=== PATIENT | male | born 1995 | race Caucasian/White ===

== ENCOUNTER 2023-08-09 13:13 | Emergency (ER) | payer SELFPAY ==
[2023-08-09] MEDS ORDERED: KETOROLAC 30 MG/ML INJ ONE (13:48)
[2023-08-09] MEDS ORDERED: CYCLOBENZAPRINE 10 MG TAB ONE (13:48)
[2023-08-09 13:50] LABS: Specific Gravity 1.019 (1.005-1.030); Urine Bilirubin NEGATIVE (Negative); Urine Blood Negative (Negative); Urine Clarity Clear (Clear); Urine Color Light-Yellow (Yellow); Urine Glucose NEGATIVE (Negative); Urine Protein NEGATIVE (Negative); Urine Urobilinogen Normal (Normal); Urine pH 5.5 (5.0-7.0)
--- NOTE | 2023-08-09 13:56 | ER ---
Nurse's Notes [facility] Name: Pacheco Macias Age: 27 yrs Sex: Male : 1995 Arrival Date: 08/09/2023 Time: 13:13 Bed 14 Private MD: Diagnosis: Low back pain Presentation: 08/09 13:18 Chief complaint: Patient states: Right low back pain that radiates to buttock and leg, nj1 onset 2 weeks ago, getting worse. 13:18 Coronavirus screen: Vaccine status: Patient reports being unvaccinated. Ebola Screen: nj1 Patient denies travel to an Ebola-affected area in the 21 days before illness onset. Initial Sepsis Screen: Does the patient meet any 2 criteria? No. Patient's initial sepsis screen is negative. Does the patient have a suspected source of infection? No. Patient's initial sepsis screen is negative. Risk Assessment: Do you want to hurt yourself or someone else? Patient reports no desire to harm self or others. Onset of symptoms was July 2023. 13:18 Method Of Arrival: Ambulatory [facility] 13:18 Acuity: LAURYN 3 nj1 Historical: - Allergies: 13:29 No Known Allergies; nj1 - PMHx: 13:29 None; nj1 - PSHx: 13:29 Appendectomy; Cholecystectomy; Exploratory laparotomy; nj1 - Immunization history:: Client reports having NOT received the Covid vaccine. - Social history:: Smoking status: Patient reports the use of cigarette tobacco products, smokes two packs cigarettes per day. Screenin:49 [facility] ED Fall Risk Assessment (Adult) Score/Fall Risk Level 0 - 2 = Low Risk nj Oriented to surroundings, Maintained a safe environment, Hourly rounding (assess needs \T\ fall precautionary measures) done. Abuse screen: Denies threats or abuse. Denies injuries from another. Nutritional screening: No deficits noted. Tuberculosis screening: No symptoms or risk factors identified. Assessment: 13:30 General: Appears in no apparent distress. uncomfortable, Behavior is calm, cooperative, nj1 appropriate for age. Pain: Complains of pain in right low back Pain radiates to right gluteus eleonora and right leg Pain currently is 7 out of 10 on a pain scale. Aggravated by increased activity, Sitting. Neuro: Level of Consciousness is awake, alert, obeys commands, Oriented to person, place, time, situation. Cardiovascular: Patient's skin is warm and dry. Respiratory: Airway is patent Respiratory effort is even, unlabored. 14:48 Reassessment: Patient appears in no apparent distress at this time. Patient and/or nj1 family updated on plan of care and expected duration. Pain level reassessed. Patient is alert, oriented x 3, equal unlabored respirations, skin warm/dry/pink. Patient states feeling better. Patient states symptoms have improved. Vital Signs: 13:18 BP 102 / 60; Pulse 84; Resp 16; Temp 98.3(O); Pulse Ox 96% on R/A; Weight 81.65 kg; nj1 Height 6 ft. 2 in. ; Pain 7/10; 14:48 BP 115 / 58; Pulse 72; Resp 16; Pulse Ox 97% ; Pain 5/10; nj1 13:18 Body Mass Index 23.11 (81.65 kg, 187.96 cm) nj1 13:18 Pain Scale: Adult nj1 14:48 Pain Scale: Adult wa1 ED Course: 13:14 Patient arrived in ED. rg4 13:14 Mikayla Elizalde FNP is [facility] 13:14 Guy Chavarria MD is Attending Physician. [facility] 13:26 Charissa Richardson, RN is Primary Nurse. nj1 13:29 Triage completed. nj1 13:30 Arm band placed on. nj1 13:30 Patient has correct armband on for positive identification. Bed in low position. Call nj1 light in reach. Adult w/ patient. Provided Education on: call light, fall precautions. 14:50 No provider procedures requiring assistance completed. Patient did not have IV access nj1 during this emergency room visit. Administered Medications: 13:40 Drug: Ketorolac IM 60 mg IM once Route: IM; Site: right ventrogluteal; nj1 14:48 Follow up: Response: No adverse reaction; Pain is decreased nj 13:40 Drug: Cyclobenzaprine PO 10 mg PO once Route: PO; nj1 14:47 Follow up: Response: No adverse reaction; Pain is decreased nj1 Medication: 14:51 VIS not applicable for this client. nj1 Outcome: 13:55 Discharge ordered by . [facility] 14:46 Discharged to home ambulatory, with family, tm6 14:46 Condition: stable 14:46 Discharge instructions given to patient, family, Instructed on discharge instructions, follow up and referral plans. medication usage, Demonstrated understanding of instructions, follow-up care, medications, Prescriptions given X 2, 14:48 Patient left the ED. ld1 Signatures: Carlee Woods rg4 Yolette Barrios, RN RN ld1 Mikayla Elizalde, ASSEMBLER [employer]E ASSEMBLER [employer]DR[employer]HOE jh7 Charissa Richardson RN RN nj1 Anthony Little RN RN tm6
--- NOTE | 2023-08-09 13:56 | EDPHYS ---
Physician Documentation [facility] Name: Pacheco Macias Age: 27 yrs Sex: Male : 1995 Arrival Date: 08/09/2023 Time: 13:13 Bed 14 Private MD: DORON Physician Guy Chavarria HPI: 08/09 13:29 This 27 yrs old Male presents to ER via Ambulatory with complaints of Low Back Pain. jh7 13:29 The patient presents with pain that is acute, with no known mechanism of injury. The jh7 symptoms are located in the right low back. The pain radiates to the right gluteus eleonora. Onset: The symptoms/episode began/occurred 2 week(s) ago, and became persistent. Associated signs and symptoms: The patient has no apparent associated signs or symptoms. Historical: - Allergies: 13:29 No Known Allergies; nj1 - PMHx: 13:29 None; nj1 - PSHx: 13:29 Appendectomy; Cholecystectomy; Exploratory laparotomy; nj1 - Immunization history:: Client reports having NOT received the Covid vaccine. - Social history:: Smoking status: Patient reports the use of cigarette tobacco products, smokes two packs cigarettes per day. ROS: 13:29 Constitutional: Negative for fever, chills, and weight loss, Eyes: Negative for injury, jh7 pain, redness, and discharge, Neck: Negative for injury, pain, and swelling, Cardiovascular: Negative for chest pain, palpitations, and edema, Respiratory: Negative for shortness of breath, cough, wheezing, and pleuritic chest pain, Abdomen/GI: Negative for abdominal pain, nausea, vomiting, diarrhea, and constipation, MS/Extremity: Negative for injury and deformity, Skin: Negative for injury, rash, and discoloration, Neuro: Negative for headache, weakness, numbness, tingling, and seizure, 13:29 Back: Positive for pain with movement, radiated pain, Negative for injury or acute deformity, 13:29 All other systems are negative, Exam: 13:29 Constitutional: This is a well developed, well nourished patient who is awake, alert, jh7 and in no acute distress. Head/Face: Normocephalic, atraumatic. Neck: Trachea midline, no thyromegaly or masses palpated, and no cervical lymphadenopathy. Supple, full range of motion without nuchal rigidity, or vertebral point tenderness. No Meningismus. Cardiovascular: Regular rate and rhythm with a normal S1 and S2. No gallops, murmurs, or rubs. Normal PMI, no JVD. No pulse deficits. Respiratory: Lungs have equal breath sounds bilaterally, clear to auscultation and percussion. No rales, rhonchi or wheezes noted. No increased work of breathing, no retractions or nasal flaring. Abdomen/GI: Soft, non-tender, with normal bowel sounds. No distension or tympany. No guarding or rebound. No evidence of tenderness throughout. Skin: Warm, dry with normal turgor. Normal color with no rashes, no lesions, and no evidence of cellulitis. MS/ Extremity: Pulses equal, no cyanosis. Neurovascular intact. Full, normal range of motion. Neuro: Awake and alert, GCS 15, oriented to person, place, time, and situation. Motor strength 5/5 in all extremities. Sensory grossly intact. Normal gait. 13:29 Back: pain, that is moderate, of the right gluteus eleonora, Vital Signs: 13:18 BP 102 / 60; Pulse 84; Resp 16; Temp 98.3(O); Pulse Ox 96% on R/A; Weight 81.65 kg; banner Height 6 ft. 2 in. ; Pain 7/10; 14:48 BP 115 / 58; Pulse 72; Resp 16; Pulse Ox 97% ; Pain 5/10; banner 13:18 Body Mass Index 23.11 (81.65 kg, 187.96 cm) banner 13:18 Pain Scale: Adult banner 14:48 Pain Scale: Adult nj1 MDM: 13:14 Patient medically screened. medical center clinic 13:56 Differential diagnosis: arthritis, strain, sciatica, contusion, Nephrolithiasis. Data medical center clinic reviewed: vital signs, nurses notes. I considered the following discharge prescriptions or medication management in the emergency department Medications were administered in the Emergency Department. See MAR. Counseling: I had a detailed discussion with the patient and/or guardian regarding the historical points, exam findings, and any diagnostic results supporting the discharge/admit diagnosis, to return to the emergency department if symptoms worsen or persist or if there are any questions or concerns that arise at home. Response to treatment: the patient's symptoms have markedly improved after treatment. 11/18 13:21 Order name: Urinalysis w/ reflexes; Complete Time: 13:54 medical center clinic Administered Medications: 13:40 Drug: Ketorolac IM 60 mg IM once Route: IM; Site: right ventrogluteal; nj1 14:48 Follow up: Response: No adverse reaction; Pain is decreased nj1 13:40 Drug: Cyclobenzaprine PO 10 mg PO once Route: PO; nj1 14:47 Follow up: Response: No adverse reaction; Pain is decreased nj1 Disposition Summary: 08/09/23 13:55 Discharge Ordered Notes: Location: Home [facility] center clinic Problem: new medical center clinic Symptoms: have improved medical center clinic Condition: Stable medical center clinic Diagnosis - Low back pain medical center clinic Followup: medical center clinic - With: Private Physician - When: 2 - 3 days - Reason: Recheck today's complaints Discharge Instructions: - Discharge Summary Sheet medical center clinic - Acute Back Pain, Adult medical center clinic - Musculoskeletal Pain medical center clinic - Heat Therapy medical center clinic Forms: - Medication Reconciliation Form medical center clinic - Thank You Letter medical center clinic - Patient Portal Instructions medical center clinic - Leadership Thank You Letter medical center clinic Prescriptions: - Zanaflex 4 mg Oral Tablet - take 1 tablet ORAL route every 8 hours As needed; 20 tablet; Refills: 0, medical center clinic Product Selection Permitted - Medrol (Waylon) 4 mg Oral Tablets, Dose Pack - take 1 tablet ORAL route as directed - follow package instructions; 1 packet; medical center clinic Refills: 0, Product Selection Permitted Signatures: Dispatcher [employer] Mikayla Saldana FNP FNP medical center clinic Charissa Richardson RN RN nj1
[2023-08-09 14:52] VITALS: TEMP 98.3
[2023-08-09 14:53] VITALS: BP 115/58; O2SAT 97
== END 2023-08-09 14:48 | disposition home or self-care (01) ==
LOC: ER 13:13
DX: M54.50 Low back pain, unspecified (principal); F17.210 Nicotine dependence, cigarettes, uncomplicated
CPT/HCPCS: 81003; 96372; 99284

== ENCOUNTER → 2023-11-17 | Emergency (ER) | payer SELFPAY ==
[2023-11-17 02:37] LABS: MCV 94.7 fL (80-100); MPV 8.3 fL (7.6-11.3)
[2023-11-17 02:41] LABS: Protime INR 0.99
[2023-11-17 02:42] LABS: Hematocrit 52.2 % (39.6-49.0); Platelets 202 thou/uL (152-406); RBC Red Blood Cell Count 5.51 M/uL (4.33-5.43)
[2023-11-17 03:10] LABS: ALT/SGPT 38 U/L (16-61); AST/SGOT 15 U/L (15-37); Albumin 3.9 g/dL (3.4-5.0); Alkaline Phosphatase 63 U/L (45-117); BUN Blood Urea Nitrogen 7 mg/dL (7-18); Bicarbonate 32 mEq/L (21-32); Bilirubin Total 0.3 mg/dL (0.2-1.0); Glomerular Filtration Rate 91 ml/min (=/>90); Glucose Level 79 mg/dL (74-106); Potassium 3.6 mEq/L (3.5-5.1); Sodium Level 145 mEq/L (136-145)
[2023-11-17 03:14] LABS: Bilirubin Direct < 0.1 mg/dL (0-0.2); Bilirubin Indirect, Calculated ND mg/dL (0.2-0.8)
--- NOTE | 2023-11-17 09:32 | ER ---
Nurse's Notes [facility] Name: Pacheco Macias Age: 28 yrs Sex: Male : 1995 Arrival Date: 11/17/2023 Time: 01:32 Bed 3 Private MD: Diagnosis: Alcohol abuse;Adverse effect of benzodiazepines Presentation: 11/17 01:37 Chief complaint: EMS states: patient took 11 xanax and has been drinking both beer and tm6 liquor. Coronavirus screen: Vaccine status: Patient reports being unvaccinated. Ebola Screen: Patient negative for fever greater than or equal to 101.5 degrees Fahrenheit, and additional compatible Ebola Virus Disease symptoms Patient denies exposure to infectious person. Patient denies travel to an Ebola-affected area in the 21 days before illness onset. No symptoms or risks identified at this time. Initial Sepsis Screen: Does the patient meet any 2 criteria? No. Patient's initial sepsis screen is negative. Does the patient have a suspected source of infection? No. Patient's initial sepsis screen is negative. Risk Assessment: Do you want to hurt yourself or someone else? Patient reports no desire to harm self or others. Onset of symptoms was November 17, 2023. 01:37 Method Of Arrival: EMS: [facility] tm6 01:37 Acuity: LAURYN 2 kb3 Triage Assessment: 03:20 General: Appears in no apparent distress. Behavior is cooperative, drowsy. Pain: Denies tm6 pain. EENT: No signs and/or symptoms were reported regarding the EENT system. Neuro: Level of Consciousness is awake, alert, obeys commands, Oriented to person, place, time, situation. Cardiovascular: Capillary refill < 3 seconds Patient's skin is warm and dry. Respiratory: Airway is patent Respiratory effort is even, unlabored, Respiratory pattern is regular, symmetrical. GI: Abdomen is flat, non-distended, Abd is soft and non tender. : No signs and/or symptoms were reported regarding the genitourinary system. Derm: No signs and/or symptoms reported regarding the dermatologic system. Musculoskeletal: No signs and/or symptoms reported regarding the musculoskeletal system. Historical: - Allergies: 03:20 No Known Allergies; tm6 - PMHx: 03:20 None; tm6 - PSHx: 03:20 Appendectomy; Cholecystectomy; Exploratory laparotomy; tm6 - Immunization history:: Adult Immunizations up to date, Client reports having NOT received the Covid vaccine. Flu vaccine is not up to date. - Social history:: Smoking status: Patient reports the use of cigarette tobacco products, smokes one pack cigarettes per day. Patient uses alcohol, on a daily basis. Patient/guardian denies using street drugs. - Family history:: not pertinent. Screenin:37 [facility] ED Fall Risk Assessment (Adult) History of falling in the last 3 months, tm6 including since admission No falls in past 3 months (0 pts) Confusion or Disorientation Yes (5 pts) Intoxicated or Sedated Yes (3 pts) Impaired Gait Yes (1 pt) Mobility Assist Device Used No (0 pt) Altered Elimination No (0 pt) Score/Fall Risk Level 3 or more points = High Risk Oriented to surroundings, Maintained a safe environment. Abuse screen: Denies threats or abuse. Denies injuries from another. Nutritional screening: No deficits noted. Tuberculosis screening: No symptoms or risk factors identified. Assessment: 01:37 Reassessment: see triage assessment. tm6 02:00 General: pt accidentally pulled out EMS IV, applied pressure dressing. vc1 03:36 Reassessment: poison control called, . Recommendations to monitor tm6 respiratory status and collect all labs and urine. Repeat tylenol and aspirin level 4 hours post ingestion, around 0430. 03:40 Reassessment: Patient appears in no apparent distress at this time. No changes from tm6 previously documented assessment. Patient and/or family updated on plan of care and expected duration. Pain level reassessed. Patient is alert, oriented x 3, equal unlabored respirations, skin warm/dry/pink. 04:40 Reassessment: Patient appears in no apparent distress at this time. No changes from vc1 previously documented assessment. Patient and/or family updated on plan of care and expected duration. Pain level reassessed. 06:13 Reassessment: Patient and/or family updated on plan of care and expected duration. Pain vc1 level reassessed. 06:30 Reassessment:. vc1 06:52 Reassessment: No changes from previously documented assessment. Patient and/or family tm6 updated on plan of care and expected duration. Pain level reassessed. Patient is alert, oriented x 3, equal unlabored respirations, skin warm/dry/pink. 07:15 Reassessment: Patient appears in no apparent distress at this time. Patient and/or ph family updated on plan of care and expected duration. Pain level reassessed. Pt asleep w/ equal and unlabored respirations. 08:00 Reassessment: Patient appears in no apparent distress at this time. No changes from ph previously documented assessment. Patient and/or family updated on plan of care and expected duration. Pain level reassessed. Pt asleep awakens easily, denies suicidal ideation or attempt. 09:45 Reassessment: Patient appears in no apparent distress at this time. Patient and/or ph family updated on plan of care and expected duration. Pain level reassessed. Patient is alert, oriented x 3, equal unlabored respirations, skin warm/dry/pink. Pt eating breakfast, tolerating well. 10:16 Reassessment: Patient appears in no apparent distress at this time. Patient and/or ph family updated on plan of care and expected duration. Pain level reassessed. attempted to contact pt's emergency contact for ride home upon discharge, no answer, voicemail left. Overdose: 01:37 [place] Suicide Severity Screening: "In the past month, have you wished you were tm6 or wished you could go to sleep and not wake up?" Patient responds "no." "In the past month, have you actually had any thoughts of killing yourself?" Patient responds "no." "In your lifetime, have you ever done anything, started to do anything, or prepared to do anything to end your life?" Patient responds "no.". Patient took 11 alprazolam and has been drinking both beer and liquor. Overdose occurred 1-2 hours ago. 11:14 [place] Suicide Severity Screening: "In the past month, have you wished you were iw or wished you could go to sleep and not wake up?" Patient responds "no." "In the past month, have you actually had any thoughts of killing yourself?" Patient responds "no.". Vital Signs: 01:37 BP 130 / 74; Pulse 106; Resp 21; Temp 97.7(TE); Pulse Ox 99% on R/A; Weight 113.4 kg; tm6 Height 6 ft. 2 in. ; Pain 0/10; 02:51 BP 118 / 64; Pulse 85; Resp 14; Pulse Ox 96% ; ec2 03:40 BP 136 / 68; Pulse 85; Resp 16; Pulse Ox 98% on R/A; Pain 0/10; tm6 04:40 BP 125 / 72; Pulse 76; Resp 12; Pulse Ox 98% on R/A; Pain 0/10; tm6 06:12 BP 123 / 68; Pulse 77; Resp 12; Pulse Ox 98% on R/A; Pain 0/10; tm6 06:53 BP 123 / 64; Pulse 67; Resp 12; Pulse Ox 98% on R/A; tm6 07:16 BP 108 / 65; Pulse 75; Resp 18; Pulse Ox 96% on R/A; ph 09:44 BP 123 / 66; Pulse 90; Resp 18; Pulse Ox 98% on R/A; ph 01:37 Body Mass Index 32.10 (113.40 kg, 187.96 cm) tm6 01:37 Pain Scale: Adult tm6 03:40 Pain Scale: Adult tm6 04:40 Pain Scale: Adult tm6 06:12 Pain Scale: Adult tm6 ED Course: 01:37 Patient arrived in ED. rv1 01:37 Ryan Sen MD is Attending Physician. ec2 01:37 Patient has correct armband on for positive identification. Bed in low position. Call tm6 light in reach. Side rails up X2. Provided Education on: plan of care. Client placed on continuous cardiac and pulse oximetry monitoring. NIBP monitoring applied. court monitor on. Pulse ox on. NIBP on. Noise minimized. Lights dimmed. Warm blanket given. 01:37 Maintain EMS IV. Dressing intact. Good blood return noted. Site clean \\T\\ dry. Gauge \\T\\ tm 6 site: 20g LAC. 02:05 Anthony Little, RN is Primary Nurse. tm6 03:20 Triage completed. tm6 03:20 Arm band placed on right wrist. tm6 06:00 Inserted saline lock: in right hand, using aseptic technique. Blood collected. vc1 06:58 Called [facility] for pt evaluation. rv1 09:29 Attending Physician role handed off by Ryan Sen MD rt 09:29 Mathew Monk MD is Attending Physician. rt 11:13 No provider procedures requiring assistance completed. IV discontinued, intact, iw bleeding controlled, No redness/swelling at site. Pressure dressing applied. Administered Medications: No medications were administered Medication: 01:37 VIS not applicable for this client. tm6 Outcome: 09:32 Discharge ordered by . rt 11:14 Discharged to home ambulatory, with family, iw 11:14 Condition: good 11:14 Discharge instructions given to patient, family, friend, Instructed on discharge instructions, follow up and referral plans. Demonstrated understanding of instructions, follow-up care, 11:14 Patient left the ED. iw Signatures: Esmer Dumont RN RN iw Mesha Almendarez RN RN ph Mary Fenton RN RN vc1 Miley Diane RN RN kb3 Mathew Monk MD MD rt Clara Massey rv1 Ryan Sen MD MD ec2 Anthony Little RN RN tm6 Corrections: (The following items were deleted from the chart) 06:33 04:40 Reassessment: Patient appears in no apparent distress at this time. No changes vc1 from previously documented assessment. Patient and/or family updated on plan of care and expected duration. Pain level reassessed. Patient is alert, oriented x 3, equal unlabored respirations, skin warm/dry/pink. tm6 06:33 06:13 Reassessment: Patient and/or family updated on plan of care and expected vc1 duration. Pain level reassessed. Patient is alert, oriented x 3, equal unlabored respirations, skin warm/dry/pink. tm6 08:35 01:37 Acuity: LAURYN 3 tm6 kb3 09:44 08:00 Reassessment: Patient appears in no apparent distress at this time. No changes ph from previously documented assessment. Patient and/or family updated on plan of care and expected duration. Pain level reassessed. Pt asleep awakens easily, denies suicidal ideation ph
--- NOTE | 2023-11-17 09:32 | EDPHYS ---
Physician Documentation [facility] Name: Pacheco Macias Age: 28 yrs Sex: Male : 1995 Arrival Date: 11/17/2023 Time: 01:32 Bed 3 Private MD: ED Physician Mathew Monk HPI: 11/17 01:48 This 28 yrs old Male presents to ER via EMS with complaints of SI. ec2 01:48 Patient arrives today due to concern for SI. Patient reportedly taken thirteen 1 mg ec2 tablets of Xanax and attempt to harm himself. States that he was being stupid. Patient reports multiple alcoholic beverages as well. Denies any previous self-harm injuries. Historical: - Allergies: 03:20 No Known Allergies; tm6 - PMHx: 03:20 None; tm6 - PSHx: 03:20 Appendectomy; Cholecystectomy; Exploratory laparotomy; tm6 - Immunization history:: Adult Immunizations up to date, Client reports having NOT received the Covid vaccine. Flu vaccine is not up to date. - Social history:: Smoking status: Patient reports the use of cigarette tobacco products, smokes one pack cigarettes per day. Patient uses alcohol, on a daily basis. Patient/guardian denies using street drugs. - Family history:: not pertinent. ROS: 01:50 Constitutional: as per hpi ec2 Exam: 01:50 Constitutional: GEN: NAD Head: atraumatic Eyes: EOMI Ears: External ears are ec2 normal. CV: regular rate LUNGS: no respiratory distress ABD: non-distended SKIN: no evidence of rashes MSK: no evidence of trauma NEURO: moves all extremities equally. Psych: Denies SI or HI Vital Signs: 01:37 BP 130 / 74; Pulse 106; Resp 21; Temp 97.7(TE); Pulse Ox 99% on R/A; Weight 113.4 kg; tm6 Height 6 ft. 2 in. ; Pain 0/10; 02:51 BP 118 / 64; Pulse 85; Resp 14; Pulse Ox 96% ; ec2 03:40 BP 136 / 68; Pulse 85; Resp 16; Pulse Ox 98% on R/A; Pain 0/10; tm6 04:40 BP 125 / 72; Pulse 76; Resp 12; Pulse Ox 98% on R/A; Pain 0/10; tm6 06:12 BP 123 / 68; Pulse 77; Resp 12; Pulse Ox 98% on R/A; Pain 0/10; tm6 06:53 BP 123 / 64; Pulse 67; Resp 12; Pulse Ox 98% on R/A; tm6 07:16 BP 108 / 65; Pulse 75; Resp 18; Pulse Ox 96% on R/A; ph 09:44 BP 123 / 66; Pulse 90; Resp 18; Pulse Ox 98% on R/A; ph 01:37 Body Mass Index 32.10 (113.40 kg, 187.96 cm) tm6 01:37 Pain Scale: Adult tm6 03:40 Pain Scale: Adult tm6 04:40 Pain Scale: Adult tm6 06:12 Pain Scale: Adult tm6 MDM: 01:38 Patient medically screened. ec2 01:50 Data reviewed: vital signs. ED course: Patient arrives today for evaluation of SI. ec2 Examination markable for well-appearing nontoxic dividual is otherwise in no acute distress with a reassuring examination, maintaining his own airway. Will obtain psychiatric evaluation. Patient is placed on an BRODY by PD.. 03:38 ED course: Tylenol level undetectable. Metabolic profile reassuring. CBC reassuring. ec2 Ethanol level elevated at 238. Liver profile unremarkable. Coagulation profile unremarkable, salicylate at 4.9. . 06:44 ED course: Repeat Tylenol and salicylate level unremarkable. Patient still intoxicated, ec2 will sign out patient to oncoming physician with pending reassessment.. 09:33 Differential Diagnosis Alcohol use, intoxication. Test considered but Not performed: rt CT: No evidence of trauma, CT scan of the head not indicated. Care significantly affected by the following Social Determinants of Health: Misuse of alcohol and/or drugs. Counseling: I had a detailed discussion with the patient and/or guardian regarding the historical points, exam findings, and any diagnostic results supporting the discharge/admit diagnosis, lab results, the need for outpatient follow up. ED course: Alcohol level 100, I reevaluated the patient, he has denied suicidal ideation to multiple nurses including to myself. The patient does not seem to be in imminent threat to himself or others. He does not require involuntary psychiatric hospitalization, stable for outpatient care.. 11/17 01:45 Order name: Acetaminophen; Complete Time: 03:38 ec2 11/17 01:45 Order name: Basic Metabolic Panel; Complete Time: 03:38 ec2 11/17 01:45 Order name: CBC with Diff; Complete Time: 03:38 ec2 11/17 01:45 Order name: ETOH Level; Complete Time: 03:38 ec2 11/17 01:45 Order name: Hepatic Function; Complete Time: 03:38 ec2 11/17 01:45 Order name: PT-INR; Complete Time: 03:38 ec2 11/17 01:45 Order name: Ptt, Activated; Complete Time: 03:38 ec2 11/17 01:45 Order name: Salicylate; Complete Time: 03:38 ec2 11/17 04:42 Order name: Salicylate; Complete Time: 06:44 ec2 11/17 04:42 Order name: Acetaminophen; Complete Time: 06:44 ec2 11/17 07:36 Order name: ETOH Level; Complete Time: 09:24 rt 11/17 01:45 Order name: EKG - Nurse/Tech; Complete Time: 03:17 ec2 11/17 01:45 Order name: IV Saline Lock; Complete Time: 03:17 ec2 11/17 01:45 Order name: Labs collected and sent; Complete Time: 03:17 ec2 11/17 01:45 Order name: Suicide Precautions; Complete Time: 06:54 ec2 11/17 01:45 Order name: Suicide Screening ([place]); Complete Time: 03:27 ec2 Administered Medications: No medications were administered Disposition Summary: 11/17/23 09:32 Discharge Ordered Notes: Location: Home rt Problem: new rt Symptoms: have improved rt Condition: Stable rt Diagnosis - Alcohol abuse rt - Adverse effect of benzodiazepines rt Followup: rt - With: Private Physician - When: 2 - 3 days - Reason: Discharge Instructions: - Discharge Summary Sheet rt - Alcohol Intoxication rt - Benzodiazepine Overdose rt Forms: - Medication Reconciliation Form rt - Thank You Letter rt - Antibiotic Education rt - Prescription Opioid Use rt - Patient Portal Instructions rt - Leadership Thank You Letter rt Signatures: Dispatcher [employer] Mathew Horner MD MD rt Ryan Sen MD MD ec2 Anthony Little RN RN tm6 Corrections: (The following items were deleted from the chart) 10:58 01:46 URINE DRUG SCREEN+[email or web address] ordered. EDMS EDMS
[2023-11-17 11:47] VITALS: BP 123/66; TEMP 97.7; O2SAT 98
== END ==
LOC: ER 01:32
DX: F10.10 Alcohol abuse, uncomplicated (principal); T42.4X5A Adverse effect of benzodiazepines, initial encounter; F17.210 Nicotine dependence, cigarettes, uncomplicated
CPT/HCPCS: 36415; 80048; 80076; 80143; 80179; 82077; 85025; 85610; 85730; 99284